=== PATIENT | male | born 1980 | race African-American/Black ===

== ENCOUNTER 2016-10-04 11:41 | Emergency (ER) ==
[2016-10-04 12:04] VITALS: BP 147/73
--- NOTE | 2016-10-04 13:16 | PROVIDER DOCUMENTATION ---
HPI-EENT General - General Chief Complaint: Flu Symptoms Stated Complaint: COLD SX Time Seen by Provider: 10/04/16 13:09 Source: patient Unable to obtain history due to:: urgency Allergies/Adverse Reactions: Patient Allergies Allergy/AdvReac Type Severity Reaction Status Date / Time No Known Allergies Allergy Verified 10/04/16 12:11 Home Medications: Home Medication List Medication Instructions Recorded Confirmed Last Taken Type Amlodipine [Norvasc] 5 mg PO DAILY #30 tablet 06/18/16 10/04/16 09/20/16 06:00 Rx Amoxicillin [Amoxil] 875 mg PO Q12HR #20 tablet 10/04/16 Unknown Rx - History of Present Illness-EENT General Quality of Pain: reports: aching Severity: reports: mild Onset/Duration: reports: 3 days ago Timing: reports: still present Prearrival Treatment: Initiated over the counter meds Associated Symptoms: reports: fever, nasal congestion/drainage Similar Symptoms Previously?: No Recently seen or treated by another doctor?: No - Eyes Eye Problem Symptoms: denies: eye pain, decrease vision, blurred vision, double vision, curtain, other, burning, itching, sensitivity to light, redness, matting , orbital swelling, eyelid swelling, foreign body sensation Apparent Injury?: No - Ears Ear Problem Symptoms: reports: other (FULLNESS INTERMITTENTLY) - Throat/Dental Throat/Dental Problem Symptoms: reports: none Review of Systems - Adult - REVIEW OF SYSTEMS - ADULT Constitutional: reports: see HPI, fever Eyes: reports: no symptoms reported Ears, Nose, Mouth & Throat: reports: ear pain, sinus problem Cardiovascular: reports: no symptoms reported Respiratory: reports: no symptoms reported Gastrointestinal: reports: no symptoms reported Genitourinary: reports: no symptoms reported Musculoskeletal: reports: no symptoms reported Integumentary: reports: no symptoms reported Neurological: reports: no symptoms reported Psychiatric: reports: no symptoms reported Endocrine: reports: no symptoms reported Hematologic/Lymphatic: reports: no symptoms reported Allergic/Immunologic: reports: no symptoms reported All Other Systems: Reviewed and Negative Past History - Adult - PAST MEDICAL HISTORY-ADULT Review of Records: reports: Old Records Reviewed, Nursing Assessment Review Respiratory: reports: asthma - PRIOR SURGERIES/PROCEDURES Surgical/Procedure History: reports: none - IMMUNIZATION STATUS Childhood Immunizations: See Nurse Assessment Flu Vaccine: See Nurse Assessment - FAMILY HISTORY Family History: reviewed, not pertinent - SOCIAL HISTORY Smoking: less than 1 pack/day Provider spent 3-5 mins advising pt. on dangers of tobacco.: Discussed manners to quit use, and f/u contacts for add'l counseling. Substance Use: none/never Alcohol Use Frequency: never Living Situation: family Physical Exam- EENT - Physical Exam EENT Initial Vital Signs Reviewed: Yes General Appearance: appears well Eye Exam: bilateral eye: normal inspection, PERRL, EOMI Ear Exam: bilateral ear: TM bulging Nasal Exam: sinus tenderness (TURBINATES ERYTHEMATOUS BILATERALLY) Throat Exam: normal mouth inspection Neck: non-tender Respiratory: chest non-tender Cardiovascular: normal peripheral pulses Lymphatic: cervical node tenderness, other (ANTERIOR CERVICLE, MOBILE, <2CM BILATERALLY) Departure - Departure Time of Disposition Order: 13:13 DIAGNOSIS: Myalgia, Cough, Tobacco abuse counseling Sinusitis Qualifiers: Sinusitis location: unspecified location Chronicity: acute Recurrence: not specified as recurrent Qualified Code(s): J01.90 - Acute sinusitis, unspecified Disposition: HOME 01 Certified Medical Emergency: Emergent Condition: Stable Additional Instructions: INCREASE FLUIDS AND REST. TAKE ALL OF ANTIBIOTIC. FOLLOW UP WITH YOUR PCP FOR FURTHER EVALUATION AND MANAGEMENT OF HYPERTENSION. MONITOR AND RECORD AT HOME-- TAKE WITH YOU TO PRIMARY MD. ED Follow Up Instructions: You have been treated by a care provider in the Emergency Department. These instructions are being provided to you so you can have an understanding of how to care for yourself upon discharge. Upon discharge from the Emergency Department, you are responsible for making arrangements for follow-up care by a physician of your choice. Take all prescribed medications as directed. Return to the Emergency Department immediately for any new or worsening symptoms. You may call the Physician Referral phone number at [phone] to obtain a list of Physicians who are taking new patients. Prescriptions: Amoxicillin [Amoxil] 875 mg PO Q12HR #20 tablet
== END 2016-10-04 13:36 | disposition home or self-care (01) ==
LOC: ED 11:41
DX: J01.90 Acute sinusitis, unspecified (principal); M79.1 Myalgia; R05 Cough; R50.9 Fever, unspecified; R09.81 Nasal congestion; H92.09 Otalgia, unspecified ear; Z79.899 Other long term (current) drug therapy; F17.210 Nicotine dependence, cigarettes, uncomplicated; Z71.6 Tobacco abuse counseling
CPT/HCPCS: 87804